=== PATIENT | female | born 1970 | race Caucasian/White ===

== ENCOUNTER 2017-01-12 17:46 | Emergency (ER) | payer OTHER ==
[2017-01-12 18:31] LABS: #Basophils 0.1 thou/uL (0.0-0.2); #Lymphocytes 2.1 thou/uL (1.20-3.40); #Monocytes 0.5 thou/uL (0.11-0.59); #Neutrophils 5.4 thou/uL (1.40-6.50); %Basophils 0.9 % (0.0-1.0); %Eosinophils 0.4 % (0.0-10.0); %Monocytes 6.6 % (0.0-10.0); Hematocrit 44.7 % (36.0-47.0); Mean Platelet Volume 5.5 fL (7.4-10.4); Red Blood Cell (RBC) Count 4.91 mill/uL (4.20-5.40); White Blood Cell (WBC) Count 8.2 thou/uL (4.8-10.8)
[2017-01-12 18:32] LABS: Bilirubin Negative (Negative); Blood, Urine Negative (Negative); Glucose, Urine (Dipstick) Negative (Negative); Ketone, Urine Negative (Negative); Nitrite Negative (Negative); Protein, Urine (Dipstick) Negative (Neg-Trace); Urobilinogen 0.2 mg/dL (0.2-1.0)
[2017-01-12 18:46] LABS: ALT (SGPT) 18 U/L (0-55); AST (SGOT) 20 U/L (5-34); Alkaline Phosphatase 100 U/L (40-150); Anion Gap 13 mmol/L (10-20); BUN (Urea Nitrogen) 7 mg/dL (7.0-18.7); Bilirubin, Total 0.3 mg/dL (0.2-1.2); Calc. Creatinine Clearance 0 mL/min (70-130); Calcium 9.4 mg/dL (7.8-10.44); Carbon Dioxide 26 mmol/L (22-29); Chloride 101 mmol/L (98-107); Estimated GFR-MDRD 81; Globulin 3.6 g/dL (2.4-3.5)
[2017-01-12 18:48] LABS: Troponin I Less than 0.010 ng/mL (< 0.028)
--- NOTE | 2017-01-12 21:12 | CT ---
CT OF THE BRAIN WITHOUT CONTRAST 01/12/[address] shows normal sized ventricles with no shift. No intracranial bleeding, mass or sign of acute stroke was found. There is some relatively prominent bifrontal atrophy given the patient's age. The calvarium appears intact. No air fluid level is seen in the sphenoid sinus and the mastoid air cells are clear. IMPRESSION: No acute intracranial finding. POS: HOME
== END 2017-01-12 19:36 | disposition home or self-care (01) ==
LOC: BURERS 17:46
DX: R42 Dizziness and giddiness (principal); R20.9 Unspecified disturbances of skin sensation; F41.9 Anxiety disorder, unspecified; F32.9 Major depressive disorder, single episode, unspecified; F17.210 Nicotine dependence, cigarettes, uncomplicated
CPT/HCPCS: 70450; 80053; 81003; 82553; 84443; 84484; 85025

== ENCOUNTER 2021-07-04 08:50 | Emergency (ER) | payer OTHER ==
[2021-07-04] MEDS ORDERED: Lidocaine 1% w/Epinephrine 1:100K 20 ML VIAL ONE (09:34)
[2021-07-04] MEDS ORDERED: Bacitracin 1 PK ONE (09:57)
[2021-07-04] MEDS ORDERED: Sodium Chloride 0.9% 100 ML ONE (09:57)
[2021-07-04] MEDS ORDERED: Boostrix 0.5 ML (Tdap) VIAL ONE (09:57)
[2021-07-04] MEDS ORDERED: CEFAZOLIN 1 GM VIAL ONE (09:57)
[2021-07-04] MEDS ORDERED: Rabies Vaccine Human 2.5 UNITS VIAL IM ONE (10:45)
[2021-07-04] MEDS ORDERED: Rabies Vaccine Human 2.5 UNITS VIAL ONE (10:47)
== END 2021-07-04 11:38 | disposition home or self-care (01) ==
LOC: BURERS 08:50
DX: S71.111A Laceration without foreign body, right thigh, initial encounter (principal); Z23 Encounter for immunization; F17.210 Nicotine dependence, cigarettes, uncomplicated; W54.0XXA Bitten by dog, initial encounter
CPT/HCPCS: 12002; 90376; 90471; 90472; 90675; 90715; 96372; J0690; J3490